=== PATIENT | female | born 1995 | race Two or more races ===

== ENCOUNTER 2020-12-19 18:45 | Emergency (ER) | payer SELFPAY ==
[~2020-12-19] VITALS: Ht 165.1 cm; Wt 56.0 kg
[2020-12-19 18:55] VITALS: BP 126/43
[2020-12-19 20:49] LABS: HEPATITIS B SURFACE AB 4.9 mIU/mL
[2020-12-22 04:09] LABS: HIV SCREEN 4G Non Reactive (Non Reactive)
== END 2020-12-19 20:43 | disposition home or self-care (01) ==
LOC: ER 18:45
DX: Z77.21 Contact with and (suspected) exposure to potentially hazardous body fluids (principal); E05.00 Thyrotoxicosis with diffuse goiter without thyrotoxic crisis or storm; Y92.238 Other place in hospital as the place of occurrence of the external cause
CPT/HCPCS: 36415; 84460; 86705; 86706; 86803; 87389; 99283

== ENCOUNTER → 2025-03-25 | Outpatient (CLI) | payer BC ==
[2025-03-25 10:12] LABS: BASOPHILS % 1.4 % (0.0-2.0); EOSINOPHILS % 2.0 % (0.0-5.0); HEMATOCRIT. 36.1 % (36.0-48.0); HEMOGLOBIN. 10.9 g/dL (12.0-16.0); LYMPHOCYTES % 43.4 % (20.0-50.0); MONOCYTES % 8.2 % (2.0-8.0); NEUTROPHILS % 45.0 % (40.0-76.0); RED BLOOD CELL COUNT 5.64 mill/uL (4.2-5.4); RED CELL DISTRIBUTION WIDTH 17.9 % (11.6-14.6)
[2025-03-25 10:14] LABS: CLARITY URINE CLEAR (CLEAR); COLOR URINE YELLOW (YELLOW); GLUCOSE URINE NEGATIVE (NEGATIVE); KETONES URINE NEGATIVE (NEGATIVE); LEUKOCYTE ESTERASE URINE NEGATIVE (NEGATIVE); NITRITE URINE NEGATIVE (NEGATIVE); OCCULT BLOOD URINE NEGATIVE (NEGATIVE); PH URINE 7.5 (4.5-8.0); PROTEIN URINE NEGATIVE (NEGATIVE); SPECIFIC GRAVITY URINE 1.009 (1.005-1.030); UROBILINOGEN URINE 0.2 E.U./dL (0.2-1.0)
[2025-03-25 10:33] LABS: CREATININE 0.8 mg/dL (0.6-1.0); TRIGLYCERIDE 75 mg/dL (0-150); UREA NITROGEN BLOOD 9 mg/dL (9-23)
[2025-03-25 10:34] LABS: ASPARTATE AMINOTRANSFERASE 13 IU/L (<34); LDL CHOLESTEROL 73 mg/dL (5-100)
[2025-03-25 10:35] LABS: BILIRUBIN TOTAL 2.6 mg/dL (0.1-1.0); PROTEIN TOTAL 7.2 g/dL (6.0-8.3)
[2025-03-25 10:36] LABS: T4 FREE 1.33 ng/dL (0.89-1.76)
[2025-03-25 10:37] LABS: ADD RBC MORPHOLOGY YES
[2025-03-25 10:44] LABS: C REACTIVE PROTEIN HIGH SENS 0.26 mg/l (<1.00)
[2025-03-25 11:27] LABS: TRIOIODOTHYRONINE TOTAL 1.01 ng/ml (0.60-1.81)
[2025-03-25 12:35] LABS: ERYTHROCYTE SEDIMENTATION RATE 2 mm/hr (0-20)
[2025-03-25 13:22] LABS: PLATELET 445 x1000/uL (130-400)
[2025-03-25 13:23] LABS: PLATELET ESTIMATE SLIGHTLY INCREASED
[2025-03-26 06:12] LABS: VITAMIN D 25-OH 15.5 ng/mL (30.0-100.0)
[2025-03-26 09:07] LABS: THYROID PEROXIDASE ANTIBODY 335.0 IU/mL (0-34)
[2025-03-27 19:06] LABS: ANTI-THYROGLOBULIN AB 1.0 IU/mL (0.0-0.9)
== END | disposition home or self-care (01) ==
LOC: LAB 08:05
DX: E05.00 Thyrotoxicosis with diffuse goiter without thyrotoxic crisis or storm (principal); R79.89 Other specified abnormal findings of blood chemistry; Z13.6 Encounter for screening for cardiovascular disorders; Z79.899 Other long term (current) drug therapy; Z00.00 Encounter for general adult medical examination without abnormal findings
CPT/HCPCS: 36415; 80053; 80061; 81003; 82306; 82728; 83036; 83540; 83550; 83735; 84439; 84443; 84480; 85025; 85651; 86141; 86376; 86800